=== PATIENT | female | born 1945 | race Caucasian/White ===

== ENCOUNTER 2017-03-14 09:15 | Outpatient (CLI) | payer MEDICARE, BC ==
[2017-03-14 10:36] LABS: CALCIUM, SERUM 8.7 mg/dL (8.5-10.1); CREATININE 0.9 mg/dL (0.6-1.3); POTASSIUM 4.6 mmol/L (3.5-5.1)
== END 2017-03-14 23:59 | disposition home or self-care (01) ==
LOC: CT 09:15
PROVIDERS: ATTEND Internal Medicine Interventional Cardiology
DX: I25.10 Atherosclerotic heart disease of native coronary artery without angina pectoris (principal); I35.8 Other nonrheumatic aortic valve disorders
CPT/HCPCS: 36415; 75574; 80048; J3490; J7050; Q9967

== ENCOUNTER 2017-05-23 15:23 | Outpatient (CLI) | payer MEDICARE, BC ==
[2017-05-23 16:04] LABS: CALCIUM, SERUM 9.5 mg/dL (8.5-10.1); CREATININE 0.8 mg/dL (0.6-1.3); POTASSIUM 4.5 mmol/L (3.5-5.1)
== END 2017-05-23 23:59 | disposition home or self-care (01) ==
LOC: LAB 15:23
PROVIDERS: ATTEND Internal Medicine Cardiovascular Disease
DX: I10 Essential (primary) hypertension (principal)
CPT/HCPCS: 36415; 80048-TC

== ENCOUNTER 2017-05-28 11:02 | Outpatient (CLI) | payer MEDICARE, BC ==
[2017-05-28] MEDS ORDERED: IV NS 0.9% 250 ML IV ONE (11:28)
[2017-05-28] MEDS ORDERED: CT SWABBABLE VALVE TRANS SET 1 EA INFUS.SET MC ONE (11:28)
[2017-05-28] MEDS ORDERED: IOHEXOL-350 100 ML VIAL IV ONE (11:28)
--- NOTE | 2017-05-28 11:49 | NUR ---
METOPROLOL IVP 5 MG ADMINISTERED. HR >70 BPM
[2017-05-28] MEDS ORDERED: METOPROLOL TARTRATE INJ 5 MG/5 ML AMPUL ONE ×3 (12:27→12:58)
--- NOTE | 2017-05-28 12:35 | NUR ---
PT RECEIVED, AMBULATORY, NO DISTRESS NOTED. IV HL STARTED R FA #[id number] TOOK NORCO PRIOR TO ARRIVAL TO PROCEDURE. EDUCATED PT. PVC'S NOTED ON MONITOR.
--- NOTE | 2017-05-28 12:37 | NUR ---
ADMINISTERED IVP METOPROLOL 5 MG ORDERED. HR IN 70'S. INSTRUCTED TO RELAX AND TAKE DEEP BREATHS
--- NOTE | 2017-05-28 12:55 | NUR ---
ADMINISTERED NITROGLYCERIN 0.4 MG SL. EDUCATED.
--- NOTE | 2017-05-28 13:02 | NUR ---
ADMINISTERED METOPROLOL IVP 5 MG; PT HR FLUCTUATING FROM 59-70, PT REPORTS PALPITATIONS. TELE READING WITH [facility].
== END 2017-05-28 23:59 | disposition home or self-care (01) ==
LOC: CT 11:02
PROVIDERS: ATTEND Internal Medicine Interventional Cardiology
DX: I25.10 Atherosclerotic heart disease of native coronary artery without angina pectoris (principal); J90 Pleural effusion, not elsewhere classified; I10 Essential (primary) hypertension; E78.5 Hyperlipidemia, unspecified; I33.0 Acute and subacute infective endocarditis; Z98.84 Bariatric surgery status; Z98.890 Other specified postprocedural states; Z95.4 Presence of other heart-valve replacement
CPT/HCPCS: 75574; J3490 ×3; J7050; Q9967